=== PATIENT | female | born 1940 | race Caucasian/White ===

== ENCOUNTER 2017-07-07 21:40 | Emergency (ER) | payer OTHER, BC ==
[2017-07-07 21:50] VITALS: RESP 16; TEMP 97.9
--- NOTE | 2017-07-07 22:04 | EDPHY ---
H & P Time Seen by Provider: 07/07/17 21:53 HPI/ROS: CHIEF COMPLAINT: Right foot and ankle pain HISTORY OF PRESENT ILLNESS: 77-year-old female states that earlier this afternoon she was walking on an incongruous surface, rolled her foot. She initially had no complaints of pain however the next several hours she started to complain of oral ankle and lateral foot pain. She is now able to bear weight with a cane and with pain. No proximal tibia or fibular fibular head pain. No direct fall. No fall from height. No head injury. PHYSICAL EXAM (Prior to examination, patient consented to physical exam, hands were washed and my usual and customary physical exam procedures followed) 1) GENERAL: Well-developed, well-nourished, alert and oriented. Appears to be in no acute distress. 2) HEAD: Normocephalic 3) HEENT: Pupils equal, round, reactive to light bilaterally. 4) LUNGS: Breathing comfortably. 5) MUSCULOSKELETAL: Tender to palpation 5th metatarsal and lateral malleolus of the right foot. No visible trauma. proximal tibia and fibula nontender . negative Quach test, compartments soft 6) SKIN: Intact no ecchymosis. Soft compartments 7) VASCULAR: DP,PT pulses and cap refill present and brisk. Normal warm temperature, normal color DIFFERENTIAL DIAGNOSIS: in no particular order including but not limited to fracture, sprain, compartment syndrome Procedure: Splint A [place] boot splint was applied by ER dental lab technician. After application of the splint I returned and re-examined the patient. The splint was adequately immobilizing the joint and distal to the splint the patient's circulation and sensation were intact. Patient shows no signs of compartment syndrome. Was given orthopedic precautions. Smoking Status: Never smoked Constitutional: Initial Vital Signs Temperature (C) 36.6 C 07/07/17 21:44 Heart Rate 77 07/07/17 21:44 Respiratory Rate 16 07/07/17 21:44 Blood Pressure 145/72 H 07/07/17 21:44 O2 Sat (%) 95 07/07/17 21:44 O2 Delivery Mode Room Air Allergies/Adverse Reactions: Sulfa (Sulfonamide Antibiotics) Allergy (Unknown, Verified 07/07/17 21:49) Home Medications: Medication Instructions Recorded Venlafaxine HCl [Venlafaxine 37.5 mg PO DAILY 06/01/12 37.5MG (*)] Calcium Carb W/Vit D [Calcium Carb 500 mg PO BID 10/22/15 W/Vit D 500/200 (*)] Cholecalciferol Vit D3 [Vitamin D3 1,000 units PO DAILY 10/22/15 (*)] Multivitamins [Multivitamin (*)] 1 each PO DAILY 10/22/15 [place]-3 Fatty Acids [Fish Oil 1000 1,000 mg PO DAILY 10/22/15 mg (*)] Melatonin 07/07/17 Turmeric 07/07/17 MDM/Departure - MDM Imaging Results: Imaging Impressions Ankle X-Ray 07/07/17 22:02 Impression: Negative right ankle series. Foot X-Ray 07/07/17 22:02 Impression: Negative right foot radiographs. Images reviewed myself Medications Given: Discontinued Medications Ibuprofen (Motrin) 600 mg PO EDNOW ONE Stop: 07/07/17 22:10 Last Admin: 07/07/17 22:14 Dose: 600 mg ED Course/Re-evaluation: Specifically inquired with this patient whether she feels safe being discharged home, whether she feels she is able to care for herself and she believes that she is able to. She does have stairs which she has to climb however she feels safe doing so with her cane. She has been re-evaluated with serial examinations , given [place] orthopedic precautions, instructions, follow-up information. She feels comfortable being discharged. Care of patient under supervision of secondary supervising physician Dr Shepherd . - Depart Disposition: Home, Routine, Self-Care Clinical Impression: Right ankle sprain Qualifiers: Encounter type: initial encounter Involved ligament of ankle: unspecified ligament Qualified Code(s): S93.401A - Sprain of unspecified ligament of right ankle, initial encounter Right foot sprain Qualifiers: Encounter type: initial encounter Qualified Code(s): S93.601A - Unspecified sprain of right foot, initial encounter Condition: Good Instructions: Ankle Sprain (ED) Additional Instructions: Return to the ER immediately if you experience discoloration, have worsening pain, numbness, tingling, or any other symptoms that concern you. If you received x-rays in the emergency department today, be advised, that ligamentous , tendon, muscular, and other non-bony injury cannot be fully ruled out. Try to keep your affected extremity elevated above the level of your chest, and keep cold packs on the affected area, for the next 48 hours. Referrals: Trevor Pacheco MD [Medical Doctor] - 5-7 days, call for appt.
[2017-07-07] MEDS ORDERED: IBUPROFEN 600 MG TAB PO ONE (22:09)
[2017-07-07 23:13] VITALS: BP 117/68; PULSE 65; O2SAT 92
== END 2017-07-07 23:12 | disposition home or self-care (01) ==
DX: S93.401A Sprain of unspecified ligament of right ankle, initial encounter (principal); S93.601A Unspecified sprain of right foot, initial encounter; X50.9XXA Other and unspecified overexertion or strenuous movements or postures, initial encounter; Y93.01 Activity, walking, marching and hiking
CPT/HCPCS: 73610; 73630; 99283; L4386

== ENCOUNTER → 2018-05-26 | Outpatient (CLI) | payer OTHER, BC | LOC: FIMAGING 12:43 | PROVIDERS: ATTEND Specialist | DX: R05 Cough (principal) ==